=== PATIENT | male | born 1950 | race Caucasian/White ===

== ENCOUNTER 2021-05-04 16:38 | Emergency (ER) | payer OTHER, SELFPAY ==
[2021-05-04] MEDS ORDERED: Ondansetron PF 4 MG/2 ML Vial ONE (16:46)
[2021-05-04 17:09] LABS: #Lymphocytes 0.7 thou/uL (1.20-3.40); #Monocytes 0.7 thou/uL (0.11-0.59); #Neutrophils 10.4 thou/uL (1.40-6.50); %Basophils 0.2 % (0.0-1.0); %Eosinophils 0.1 % (0.0-10.0); %Lymphocytes 5.6 % (21.0-51.0); %Monocytes 5.6 % (0.0-10.0); %Neutrophils 88.5 % (42.0-75.0); Hemoglobin 13.3 g/dL (14.0-18.0); Mean Corpuscular HGB CONC 32.2 g/dL (32.0-36.0); Mean Corpuscular Hemoglobin 28.7 pg (27.0-31.0); Mean Corpuscular Volume 89.4 fL (78.0-98.0); Mean Platelet Volume 8.2 fL (7.4-10.4); Platelet Count 261 thou/uL (130-400); Red Blood Cell (RBC) Count 4.64 mill/uL (4.70-6.10); White Blood Cell (WBC) Count 11.8 thou/uL (4.8-10.8)
[2021-05-04 17:42] LABS: ALT (SGPT) 31 U/L (8-55); AST (SGOT) 22 U/L (5-34); Albumin 3.6 g/dL (3.4-4.8); Alkaline Phosphatase 85 U/L (40-110); Anion Gap 16 mmol/L (10-20); BUN (Urea Nitrogen) 13 mg/dL (8.4-25.7); Bilirubin, Total 0.5 mg/dL (0.2-1.2); Calc. Creatinine Clearance 0 mL/min (70-130); Calcium 8.4 mg/dL (7.8-10.44); Carbon Dioxide 17 mmol/L (23-31); Chloride 95 mmol/L (98-107); Globulin 3.2 g/dL (2.4-3.5); Glucose 134 mg/dL (80-115); Lipase 7 U/L (8-78); Potassium 3.8 mmol/L (3.5-5.1); Protein, Total 6.8 g/dL (5.8-8.1); Sodium 124 mmol/L (136-145)
[2021-05-04] MEDS ORDERED: Sodium Chloride 0.9% 2,000 ML ONE (19:31)
[2021-05-04 19:35] LABS: Bilirubin Negative (Negative); Blood, Urine Trace (Negative); Clarity Clear (Clear); Glucose, Urine (Dipstick) Negative (Negative); Ketone, Urine Negative (Negative); Leukocyte Small (Negative); Nitrite Positive (Negative); Protein, Urine (Dipstick) 30 mg/dL (Neg-Trace); pH, Urine 6.5 (5.0-9.0)
[2021-05-04 19:36] LABS: Bacteria/HPF 2+ HPF (None Seen); RBC/HPF 0-3 HPF (0-3); Squamous Epithelial 0-3 HPF (0-3)
[2021-05-04] MEDS ORDERED: cefTRIAXone\\ROCEPHIN 1 GM VIAL ONE (19:39)
[2021-05-04] MEDS ORDERED: Sodium Chloride 0.9% 100 ML ONE (19:40)
[2021-05-04] MEDS ORDERED: Acetaminophen 500 MG TAB ONE (22:50)
[2021-05-05 00:44] LABS: ALT (SGPT) 34 U/L (8-55); AST (SGOT) 25 U/L (5-34); Albumin 3.2 g/dL (3.4-4.8); Alkaline Phosphatase 81 U/L (40-110); Anion Gap 15 mmol/L (10-20); BUN (Urea Nitrogen) 10 mg/dL (8.4-25.7); Bilirubin, Total 0.2 mg/dL (0.2-1.2); Calc. Creatinine Clearance 0 mL/min (70-130); Calcium 8.3 mg/dL (7.8-10.44); Carbon Dioxide 19 mmol/L (23-31); Chloride 100 mmol/L (98-107); Globulin 2.7 g/dL (2.4-3.5); Glucose 164 mg/dL (80-115); Potassium 4.9 mmol/L (3.5-5.1); Protein, Total 5.9 g/dL (5.8-8.1); Sodium 129 mmol/L (136-145)
== END 2021-05-05 01:47 | disposition short-term general hospital (02) ==
LOC: NAV ERS 16:38
DX: N39.0 Urinary tract infection, site not specified (principal); E86.0 Dehydration; R53.1 Weakness; I10 Essential (primary) hypertension; E78.5 Hyperlipidemia, unspecified; F17.210 Nicotine dependence, cigarettes, uncomplicated; Z79.82 Long term (current) use of aspirin; Z79.899 Other long term (current) drug therapy
CPT/HCPCS: 36415; 70450; 80053; 81003; 81015; 83605; 83690; 84484; 85025; 87077; 87086; 87186; 93005; 94760; 96374; 96375; J0696; J2405; J3490; J7050

== ENCOUNTER 2022-11-30 13:12 | Inpatient (IN) | payer MEDICARE, OTHER ==
[2022-11-30] MEDS ORDERED: Benzonatate 100 MG CAP PO PRN (16:18)
[2022-11-30] MEDS ORDERED: Ondansetron ODT 4 MG TAB PO PRN (16:18)
[2022-11-30] MEDS ORDERED: Calcium Carbonate 500 MG ChewTAB PO PRN (16:18)
[2022-11-30] MEDS ORDERED: Sodium Chloride 0.65% Nasal 44 ML BOT EA NARE PRN (16:18)
[2022-11-30] MEDS ORDERED: Ondansetron PF 4 MG/2 ML Vial IVP PRN (16:18)
[2022-11-30] MEDS ORDERED: Bisacodyl 10 MG SUPP PR PRN (16:18)
[2022-11-30] MEDS ORDERED: Bisacodyl 5 MG TAB PO PRN (16:18)
[2022-11-30] MEDS ORDERED: Guaifenesin DM 100-10/5 ML UDCUP PO PRN (16:18)
[2022-11-30] MEDS ORDERED: Cepastat Lozenges 1 LOZ PO PRN (16:18)
[2022-11-30] MEDS ORDERED: Artificial Tear Sol 15 ML BOT EA EYE PRN (16:18)
[2022-11-30] MEDS: Famotidine 20 MG TAB PO SCH (22:06)
[2022-11-30] MEDS: Cilostazol 100 MG TAB PO SCH (22:07)
[2022-11-30] MEDS: Nicotine 21 MG PATCH TOP SCH (23:32)
[2022-12-01 06:52] LABS: #Eosinphils 0.1 thou/uL (0.0-0.7); #Lymphocytes 0.8 thou/uL (1.20-3.40); #Monocytes 0.6 thou/uL (0.11-0.59); #Neutrophils 3.1 thou/uL (1.40-6.50); %Basophils 0.7 % (0.0-1.0); %Eosinophils 1.3 % (0.0-10.0); %Lymphocytes 17.3 % (21.0-51.0); %Monocytes 12.5 % (0.0-10.0); %Neutrophils 68.3 % (42.0-75.0); Hemoglobin 14.8 g/dL (14.0-18.0); Mean Corpuscular HGB CONC 32.7 g/dL (32.0-36.0); Mean Corpuscular Hemoglobin 31.8 pg (27.0-31.0); Mean Corpuscular Volume 97.4 fl (78.0-98.0); Mean Platelet Volume 7.4 fL (7.4-10.4); Platelet Count 169 10x3/uL (130-400); RBC Distribution Width 14.3 % (11.5-14.5); Red Blood Cell (RBC) Count 4.67 mill/uL (4.70-6.10); White Blood Cell (WBC) Count 4.5 10x3/uL (4.8-10.8)
[2022-12-01 06:55] LABS: ALT (SGPT) 44 U/L (8-55); AST (SGOT) 38 U/L (5-34); Albumin 3.8 g/dL (3.4-4.8); Alkaline Phosphatase 103 U/L (40-110); Anion Gap 19 mmol/L (10-20); BUN (Urea Nitrogen) 18 mg/dL (8.4-25.7); Bilirubin, Total 0.5 mg/dL (0.2-1.2); Calc. Creatinine Clearance 63 mL/min (70-130); Calcium 10.2 mg/dL (7.8-10.44); Carbon Dioxide 20 mmol/L (23-31); Chloride 103 mmol/L (98-107); Estimated GFR 91; Globulin 2.8 g/dL (2.4-3.5); Glucose 99 mg/dL (83-110); Potassium 4.1 mmol/L (3.5-5.1); Protein, Total 6.6 g/dL (5.8-8.1); Sodium 138 mmol/L (136-145)
[2022-12-01] MEDS ORDERED: Ondansetron ODT 4 MG TAB SL PRN (08:45)
[2022-12-01] MEDS: Cholecalciferol 1,000 UNITS (25 MCG) TAB PO SCH (08:54)
[2022-12-01] MEDS: Zinc Sulfate 220 MG CAP PO SCH (08:54)
[2022-12-01] MEDS: Famotidine 20 MG TAB PO SCH ×2 (08:54→21:53)
[2022-12-01] MEDS: Ascorbic Acid 500 mg Chewable Tablet PO SCH (08:54)
[2022-12-01] MEDS: Cilostazol 100 MG TAB PO SCH ×2 (08:54→21:53)
[2022-12-01] MEDS: Aspirin 81 mg Enteric Coated Tablet PO SCH (08:56)
[2022-12-01] MEDS: Lisinopril 5 MG TAB PO SCH (08:59)
[2022-12-01] MEDS ORDERED: Lisinopril 10 MG TAB PO SCH (09:00)
[2022-12-01] MEDS: Atorvastatin Calcium 40 MG TAB PO SCH (21:53)
[2022-12-02] MEDS: Ascorbic Acid 500 mg Chewable Tablet PO SCH (08:10)
[2022-12-02] MEDS: Cholecalciferol 1,000 UNITS (25 MCG) TAB PO SCH (08:11)
[2022-12-02] MEDS: Cilostazol 100 MG TAB PO SCH ×2 (08:11→20:49)
[2022-12-02] MEDS: Famotidine 20 MG TAB PO SCH (08:11)
[2022-12-02] MEDS: Aspirin 81 mg Enteric Coated Tablet PO SCH (08:11)
[2022-12-02] MEDS: Zinc Sulfate 220 MG CAP PO SCH (08:11)
[2022-12-02] MEDS: Lisinopril 5 MG TAB PO SCH (08:16)
[2022-12-02] MEDS ORDERED: cloNIDine 0.1 MG TAB PO PRN (18:09)
[2022-12-02] MEDS: Acetaminophen 500 MG TAB PO PRN (18:28)
[2022-12-02] MEDS: Atorvastatin Calcium 40 MG TAB PO SCH (20:49)
[2022-12-03] MEDS: Zinc Sulfate 220 MG CAP PO SCH (09:34)
[2022-12-03] MEDS: Lisinopril 5 MG TAB PO SCH (09:38)
[2022-12-03] MEDS: Ascorbic Acid 500 mg Chewable Tablet PO SCH (09:39)
[2022-12-03] MEDS: Cholecalciferol 1,000 UNITS (25 MCG) TAB PO SCH (09:39)
[2022-12-03] MEDS: Aspirin 81 mg Enteric Coated Tablet PO SCH (09:39)
[2022-12-03] MEDS: Cilostazol 100 MG TAB PO SCH ×2 (09:39→21:23)
[2022-12-03] MEDS: Nicotine 21 MG PATCH TOP SCH (21:23)
[2022-12-03] MEDS: Atorvastatin Calcium 40 MG TAB PO SCH (21:23)
[2022-12-04] MEDS: Lisinopril 5 MG TAB PO SCH (08:00)
[2022-12-04] MEDS: Ascorbic Acid 500 mg Chewable Tablet PO SCH (08:00)
[2022-12-04] MEDS: Zinc Sulfate 220 MG CAP PO SCH (08:00)
[2022-12-04] MEDS: Cilostazol 100 MG TAB PO SCH ×2 (08:00→20:46)
[2022-12-04] MEDS: Cholecalciferol 1,000 UNITS (25 MCG) TAB PO SCH (08:01)
[2022-12-04] MEDS: Aspirin 81 mg Enteric Coated Tablet PO SCH (08:01)
[2022-12-04] MEDS: Acetaminophen 500 MG TAB PO PRN (15:37)
[2022-12-04] MEDS: Atorvastatin Calcium 40 MG TAB PO SCH (20:46)
[2022-12-05] MEDS: Cholecalciferol 1,000 UNITS (25 MCG) TAB PO SCH (07:48)
[2022-12-05] MEDS: Cilostazol 100 MG TAB PO SCH ×2 (07:49→21:24)
[2022-12-05] MEDS: Aspirin 81 mg Enteric Coated Tablet PO SCH (07:49)
[2022-12-05] MEDS: Lisinopril 5 MG TAB PO SCH (07:49)
[2022-12-05] MEDS: Zinc Sulfate 220 MG CAP PO SCH (07:49)
[2022-12-05] MEDS: Ascorbic Acid 500 mg Chewable Tablet PO SCH (07:49)
[2022-12-05] MEDS ORDERED: Megestrol Acetate 800 MG/20 ML UDCUP PO SCH (13:30)
[2022-12-05] MEDS: Atorvastatin Calcium 40 MG TAB PO SCH (21:24)
[2022-12-05] MEDS ORDERED: Metoprolol Tartrate 25 MG TAB PO SCH (23:00)
[2022-12-06] MEDS: Megestrol Acetate 800 MG/20 ML UDCUP PO SCH (08:35)
[2022-12-06] MEDS: Cilostazol 100 MG TAB PO SCH ×2 (08:36→21:33)
[2022-12-06] MEDS: Acetaminophen 500 MG TAB PO PRN ×2 (08:36→21:31)
[2022-12-06] MEDS: Ascorbic Acid 500 mg Chewable Tablet PO SCH (08:36)
[2022-12-06] MEDS: Lisinopril 5 MG TAB PO SCH (08:37)
[2022-12-06] MEDS: Cholecalciferol 1,000 UNITS (25 MCG) TAB PO SCH (08:37)
[2022-12-06] MEDS: Zinc Sulfate 220 MG CAP PO SCH (08:37)
[2022-12-06] MEDS: Aspirin 81 mg Enteric Coated Tablet PO SCH (08:37)
[2022-12-06] MEDS: Metoprolol Tartrate 25 MG TAB PO SCH ×2 (08:38→21:33)
[2022-12-06] MEDS: Atorvastatin Calcium 40 MG TAB PO SCH (21:31)
[2022-12-06] MEDS: Nicotine 21 MG PATCH TOP SCH (21:33)
[2022-12-07] MEDS: Megestrol Acetate 800 MG/20 ML UDCUP PO SCH (08:29)
[2022-12-07] MEDS: Zinc Sulfate 220 MG CAP PO SCH (08:31)
[2022-12-07] MEDS: Metoprolol Tartrate 25 MG TAB PO SCH ×2 (08:31→20:57)
[2022-12-07] MEDS: Cholecalciferol 1,000 UNITS (25 MCG) TAB PO SCH (08:32)
[2022-12-07] MEDS: Lisinopril 5 MG TAB PO SCH (08:32)
[2022-12-07] MEDS: Cilostazol 100 MG TAB PO SCH ×2 (08:32→20:57)
[2022-12-07] MEDS: Aspirin 81 mg Enteric Coated Tablet PO SCH (08:32)
[2022-12-07] MEDS: Ascorbic Acid 500 mg Chewable Tablet PO SCH (08:32)
[2022-12-07] MEDS: Atorvastatin Calcium 40 MG TAB PO SCH (20:57)
[2022-12-08] MEDS: Megestrol Acetate 800 MG/20 ML UDCUP PO SCH ×2 (08:33→08:50)
[2022-12-08] MEDS: Aspirin 81 mg Enteric Coated Tablet PO SCH (08:34)
[2022-12-08] MEDS: Cilostazol 100 MG TAB PO SCH ×2 (08:34→20:20)
[2022-12-08] MEDS: Metoprolol Tartrate 25 MG TAB PO SCH ×2 (08:34→20:20)
[2022-12-08] MEDS: Zinc Sulfate 220 MG CAP PO SCH (08:35)
[2022-12-08] MEDS: Lisinopril 5 MG TAB PO SCH (08:35)
[2022-12-08] MEDS: Ascorbic Acid 500 mg Chewable Tablet PO SCH (08:35)
[2022-12-08] MEDS: Cholecalciferol 1,000 UNITS (25 MCG) TAB PO SCH (08:35)
[2022-12-08] MEDS: Atorvastatin Calcium 40 MG TAB PO SCH (20:20)
[2022-12-09] MEDS: Aspirin 81 mg Enteric Coated Tablet PO SCH (09:35)
[2022-12-09] MEDS: Cilostazol 100 MG TAB PO SCH ×2 (09:35→20:52)
[2022-12-09] MEDS: Ascorbic Acid 500 mg Chewable Tablet PO SCH (09:35)
[2022-12-09] MEDS: Lisinopril 5 MG TAB PO SCH (09:35)
[2022-12-09] MEDS: Cholecalciferol 1,000 UNITS (25 MCG) TAB PO SCH (09:35)
[2022-12-09] MEDS: Zinc Sulfate 220 MG CAP PO SCH (09:35)
[2022-12-09] MEDS: Megestrol Acetate 800 MG/20 ML UDCUP PO SCH (09:36)
[2022-12-09] MEDS: Metoprolol Tartrate 25 MG TAB PO SCH ×2 (09:36→20:51)
[2022-12-09] MEDS: Atorvastatin Calcium 40 MG TAB PO SCH (20:52)
[2022-12-09] MEDS: Nicotine 21 MG PATCH TOP SCH (20:52)
[2022-12-10] MEDS: Ascorbic Acid 500 mg Chewable Tablet PO SCH (09:17)
[2022-12-10] MEDS: Cholecalciferol 1,000 UNITS (25 MCG) TAB PO SCH (09:17)
[2022-12-10] MEDS: Lisinopril 5 MG TAB PO SCH (09:17)
[2022-12-10] MEDS: Senokot S 8.6-50 MG TAB PO PRN (09:17)
[2022-12-10] MEDS: Cilostazol 100 MG TAB PO SCH ×2 (09:18→21:23)
[2022-12-10] MEDS: Aspirin 81 mg Enteric Coated Tablet PO SCH (09:18)
[2022-12-10] MEDS: Metoprolol Tartrate 25 MG TAB PO SCH ×2 (09:18→21:23)
[2022-12-10] MEDS: Zinc Sulfate 220 MG CAP PO SCH (09:18)
[2022-12-10] MEDS: Megestrol Acetate 800 MG/20 ML UDCUP PO SCH (09:19)
[2022-12-10] MEDS: Atorvastatin Calcium 40 MG TAB PO SCH (21:23)
[2022-12-11] MEDS: Metoprolol Tartrate 25 MG TAB PO SCH ×2 (09:01→20:44)
[2022-12-11] MEDS: Megestrol Acetate 800 MG/20 ML UDCUP PO SCH (09:01)
[2022-12-11] MEDS: Lisinopril 5 MG TAB PO SCH (09:01)
[2022-12-11] MEDS: Zinc Sulfate 220 MG CAP PO SCH (09:01)
[2022-12-11] MEDS: Cholecalciferol 1,000 UNITS (25 MCG) TAB PO SCH (09:01)
[2022-12-11] MEDS: Ascorbic Acid 500 mg Chewable Tablet PO SCH (09:01)
[2022-12-11] MEDS: Aspirin 81 mg Enteric Coated Tablet PO SCH (09:01)
[2022-12-11] MEDS: Cilostazol 100 MG TAB PO SCH ×2 (09:15→20:44)
[2022-12-11] MEDS: Atorvastatin Calcium 40 MG TAB PO SCH (20:44)
[2022-12-12] MEDS: Megestrol Acetate 800 MG/20 ML UDCUP PO SCH (08:26)
[2022-12-12] MEDS: Cilostazol 100 MG TAB PO SCH ×2 (08:32→21:14)
[2022-12-12] MEDS: Metoprolol Tartrate 25 MG TAB PO SCH ×2 (08:32→21:13)
[2022-12-12] MEDS: Cholecalciferol 1,000 UNITS (25 MCG) TAB PO SCH (09:20)
[2022-12-12] MEDS: Aspirin 81 mg Enteric Coated Tablet PO SCH (09:20)
[2022-12-12] MEDS: Ascorbic Acid 500 mg Chewable Tablet PO SCH (09:20)
[2022-12-12] MEDS: Lisinopril 5 MG TAB PO SCH (09:20)
[2022-12-12] MEDS: Zinc Sulfate 220 MG CAP PO SCH (09:21)
[2022-12-12] MEDS: Atorvastatin Calcium 40 MG TAB PO SCH (21:14)
[2022-12-12] MEDS: Nicotine 21 MG PATCH TOP SCH (21:16)
[2022-12-13] MEDS: Megestrol Acetate 800 MG/20 ML UDCUP PO SCH (10:25)
[2022-12-13] MEDS: Ascorbic Acid 500 mg Chewable Tablet PO SCH (10:27)
[2022-12-13] MEDS: Lisinopril 5 MG TAB PO SCH (10:27)
[2022-12-13] MEDS: Zinc Sulfate 220 MG CAP PO SCH (10:27)
[2022-12-13] MEDS: Cholecalciferol 1,000 UNITS (25 MCG) TAB PO SCH (10:27)
[2022-12-13] MEDS: Metoprolol Tartrate 25 MG TAB PO SCH ×2 (10:28→20:34)
[2022-12-13] MEDS: Cilostazol 100 MG TAB PO SCH ×2 (10:29→20:35)
[2022-12-13] MEDS: Aspirin 81 mg Enteric Coated Tablet PO SCH (10:29)
[2022-12-13 12:37] LABS: Hemoglobin 14.8 g/dL (14.0-18.0); Platelet Count 174 10x3/uL (130-400)
[2022-12-13] MEDS: Atorvastatin Calcium 40 MG TAB PO SCH (20:35)
[2022-12-14] MEDS: Acetaminophen 500 MG TAB PO PRN (09:37)
[2022-12-14] MEDS: Ascorbic Acid 500 mg Chewable Tablet PO SCH (09:38)
[2022-12-14] MEDS: Cilostazol 100 MG TAB PO SCH ×2 (09:39→21:37)
[2022-12-14] MEDS: Zinc Sulfate 220 MG CAP PO SCH (09:39)
[2022-12-14] MEDS: Metoprolol Tartrate 25 MG TAB PO SCH ×2 (09:39→21:37)
[2022-12-14] MEDS: Megestrol Acetate 800 MG/20 ML UDCUP PO SCH (09:39)
[2022-12-14] MEDS: Cholecalciferol 1,000 UNITS (25 MCG) TAB PO SCH (09:39)
[2022-12-14] MEDS: Lisinopril 5 MG TAB PO SCH (09:41)
[2022-12-14] MEDS: Aspirin 81 mg Enteric Coated Tablet PO SCH (09:41)
[2022-12-14] MEDS: Senokot S 8.6-50 MG TAB PO PRN (17:42)
[2022-12-14] MEDS: Atorvastatin Calcium 40 MG TAB PO SCH (21:37)
[2022-12-15] MEDS: Megestrol Acetate 800 MG/20 ML UDCUP PO SCH (09:49)
[2022-12-15] MEDS: Acetaminophen 500 MG TAB PO PRN (09:50)
[2022-12-15] MEDS: Cholecalciferol 1,000 UNITS (25 MCG) TAB PO SCH (09:50)
[2022-12-15] MEDS: Ascorbic Acid 500 mg Chewable Tablet PO SCH (09:51)
[2022-12-15] MEDS: Metoprolol Tartrate 25 MG TAB PO SCH ×2 (09:51→21:29)
[2022-12-15] MEDS: Cilostazol 100 MG TAB PO SCH ×2 (09:52→21:29)
[2022-12-15] MEDS: Lisinopril 5 MG TAB PO SCH (09:52)
[2022-12-15] MEDS: Aspirin 81 mg Enteric Coated Tablet PO SCH (09:52)
[2022-12-15] MEDS: Zinc Sulfate 220 MG CAP PO SCH (09:52)
[2022-12-15] MEDS ORDERED: cloNIDine 0.1 MG TAB PO PRN (12:30)
[2022-12-15] MEDS: Atorvastatin Calcium 40 MG TAB PO SCH (21:30)
[2022-12-15] MEDS: Nicotine 21 MG PATCH TOP SCH (21:30)
[2022-12-16] MEDS: Megestrol Acetate 800 MG/20 ML UDCUP PO SCH (09:33)
[2022-12-16] MEDS: Metoprolol Tartrate 25 MG TAB PO SCH ×2 (09:33→20:44)
[2022-12-16] MEDS: Cholecalciferol 1,000 UNITS (25 MCG) TAB PO SCH (09:33)
[2022-12-16] MEDS: Cilostazol 100 MG TAB PO SCH ×2 (09:33→20:44)
[2022-12-16] MEDS: Zinc Sulfate 220 MG CAP PO SCH (09:33)
[2022-12-16] MEDS: Aspirin 81 mg Enteric Coated Tablet PO SCH (09:33)
[2022-12-16] MEDS: Ascorbic Acid 500 mg Chewable Tablet PO SCH (09:33)
[2022-12-16] MEDS: Lisinopril 5 MG TAB PO SCH (09:33)
[2022-12-16] MEDS: Atorvastatin Calcium 40 MG TAB PO SCH (20:45)
[2022-12-17 06:39] VITALS: BMI 18.6
[2022-12-17] MEDS: Megestrol Acetate 800 MG/20 ML UDCUP PO SCH (09:22)
[2022-12-17] MEDS: Ascorbic Acid 500 mg Chewable Tablet PO SCH (09:23)
[2022-12-17] MEDS: Cholecalciferol 1,000 UNITS (25 MCG) TAB PO SCH (09:23)
[2022-12-17] MEDS: Nicotine 21 MG PATCH TOP SCH (09:23)
[2022-12-17] MEDS: Aspirin 81 mg Enteric Coated Tablet PO SCH (09:23)
[2022-12-17] MEDS: Zinc Sulfate 220 MG CAP PO SCH (09:23)
[2022-12-17] MEDS: Cilostazol 100 MG TAB PO SCH ×2 (09:24→21:09)
[2022-12-17] MEDS: Lisinopril 5 MG TAB PO SCH (09:24)
[2022-12-17] MEDS: Metoprolol Tartrate 25 MG TAB PO SCH ×2 (09:24→21:10)
[2022-12-17] MEDS: Atorvastatin Calcium 40 MG TAB PO SCH (21:09)
[2022-12-18] MEDS: Nicotine 21 MG PATCH TOP SCH (10:01)
[2022-12-18] MEDS: Zinc Sulfate 220 MG CAP PO SCH (10:01)
[2022-12-18] MEDS: Cilostazol 100 MG TAB PO SCH ×2 (10:01→21:16)
[2022-12-18] MEDS: Ascorbic Acid 500 mg Chewable Tablet PO SCH (10:01)
[2022-12-18] MEDS: Lisinopril 5 MG TAB PO SCH (10:02)
[2022-12-18] MEDS: Aspirin 81 mg Enteric Coated Tablet PO SCH (10:02)
[2022-12-18] MEDS: Cholecalciferol 1,000 UNITS (25 MCG) TAB PO SCH (10:02)
[2022-12-18] MEDS: Metoprolol Tartrate 25 MG TAB PO SCH ×2 (10:02→21:17)
[2022-12-18] MEDS: Megestrol Acetate 800 MG/20 ML UDCUP PO SCH (10:02)
[2022-12-18] MEDS ORDERED: cloNIDine 0.1 MG TAB PO SCH (11:30)
[2022-12-18] MEDS: Atorvastatin Calcium 40 MG TAB PO SCH (21:16)
[2022-12-19] MEDS: Metoprolol Tartrate 25 MG TAB PO SCH ×2 (09:49→20:49)
[2022-12-19] MEDS: Aspirin 81 mg Enteric Coated Tablet PO SCH (09:49)
[2022-12-19] MEDS: Lisinopril 5 MG TAB PO SCH (09:50)
[2022-12-19] MEDS: Acetaminophen 500 MG TAB PO PRN (09:50)
[2022-12-19] MEDS: Cilostazol 100 MG TAB PO SCH ×2 (10:02→20:49)
[2022-12-19] MEDS: Ascorbic Acid 500 mg Chewable Tablet PO SCH ×2 (10:08→10:20)
[2022-12-19] MEDS: Cholecalciferol 1,000 UNITS (25 MCG) TAB PO SCH (10:08)
[2022-12-19] MEDS: Zinc Sulfate 220 MG CAP PO SCH (10:08)
[2022-12-19] MEDS: Nicotine 21 MG PATCH TOP SCH (10:09)
[2022-12-19] MEDS: Megestrol Acetate 800 MG/20 ML UDCUP PO SCH (10:20)
[2022-12-19] MEDS: Atorvastatin Calcium 40 MG TAB PO SCH (20:49)
[2022-12-20 08:39] VITALS: BP 138/71; TEMP 98.7
[2022-12-20] MEDS: Cilostazol 100 MG TAB PO SCH (09:17)
[2022-12-20] MEDS: Nicotine 21 MG PATCH TOP SCH (09:17)
[2022-12-20] MEDS: Aspirin 81 mg Enteric Coated Tablet PO SCH (09:17)
[2022-12-20] MEDS: Cholecalciferol 1,000 UNITS (25 MCG) TAB PO SCH ×2 (09:17→09:40)
[2022-12-20] MEDS: Ascorbic Acid 500 mg Chewable Tablet PO SCH ×2 (09:17→09:40)
[2022-12-20] MEDS: Zinc Sulfate 220 MG CAP PO SCH ×2 (09:17→09:41)
[2022-12-20] MEDS: Metoprolol Tartrate 25 MG TAB PO SCH (09:18)
[2022-12-20] MEDS: Lisinopril 5 MG TAB PO SCH (09:18)
[2022-12-20] MEDS: Megestrol Acetate 800 MG/20 ML UDCUP PO SCH ×2 (09:22→09:37)
== END 2022-12-20 19:55 | disposition hospice, home (50) | DRG 948 ==
LOC: NAV ACUTE 19:45
PROVIDERS: ADMIT Family Medicine; ATTEND Family Medicine
DX: R53.1 Weakness (principal); C71.9 Malignant neoplasm of brain, unspecified; Z51.5 Encounter for palliative care; Z66 Do not resuscitate; I10 Essential (primary) hypertension; E78.5 Hyperlipidemia, unspecified; F17.210 Nicotine dependence, cigarettes, uncomplicated; R53.81 Other malaise; I25.10 Atherosclerotic heart disease of native coronary artery without angina pectoris; T45.1X5A Adverse effect of antineoplastic and immunosuppressive drugs, initial encounter; Z87.440 Personal history of urinary (tract) infections; Z86.16 Personal history of COVID-19; Z88.0 Allergy status to penicillin; Z88.8 Allergy status to other drugs, medicaments and biological substances; Z79.82 Long term (current) use of aspirin; Z79.899 Other long term (current) drug therapy; Z85.46 Personal history of malignant neoplasm of prostate; Z85.51 Personal history of malignant neoplasm of bladder; Z90.49 Acquired absence of other specified parts of digestive tract; Z80.1 Family history of malignant neoplasm of trachea, bronchus and lung
CPT/HCPCS: 80053; 85014; 85018; 85025; 85049; J1650